=== PATIENT | female | born 1995 | race Caucasian/White ===

== ENCOUNTER 2017-11-20 13:00 | Inpatient (IN) | payer OTHER ==
[~2017-11-20] VITALS: Ht 167.6 cm; Wt 76.2 kg
[2017-11-24] MEDS ORDERED: PRENATAL TABLE1 EAC3 PO (14:00)
== END 2017-11-26 14:57 | DRG 775 ==
LOC: LDR 11-24 12:52 → OB/GYN 11-24 12:52 → LDR 12-07 13:00
PROC: 10E0XZZ Delivery of Products of Conception, External Approach (ICD-10-PCS; principal; 2017-11-24)
PROC: 0UQMXZZ Repair Vulva, External Approach (ICD-10-PCS; 2017-11-24)
PROC: 3E033VJ Introduction of Other Hormone into Peripheral Vein, Percutaneous Approach (ICD-10-PCS; 2017-11-24)
PROC: 4A1HXCZ Monitoring of Products of Conception, Cardiac Rate, External Approach (ICD-10-PCS; 2017-11-24)
DX: O71.82 Other specified trauma to perineum and vulva (principal); O99.824 Streptococcus B carrier state complicating childbirth; Z3A.38 38 weeks gestation of pregnancy; Z37.0 Single live birth

== ENCOUNTER 2022-02-24 12:10 | Inpatient (IN) | payer OTHER ==
[~2022-02-24] VITALS: Ht 167.6 cm; Wt 83.9 kg
[~2022-02-24 12:10] MED LIST: PRENATAL TABLE1 EAC3 PO
[2022-03-01] MEDS ORDERED: ACETAMINOPHEN325 M1 PO (07:06)
== END 2022-03-01 12:04 | disposition home or self-care (01) | DRG 798 ==
LOC: LDR 02-27 05:25 → OB/GYN 02-27 05:25
PROVIDERS: ADMIT Specialist; ATTEND Specialist
PROC: 10E0XZZ Delivery of Products of Conception, External Approach (ICD-10-PCS; principal; 2022-02-27)
PROC: 4A1HXCZ Monitoring of Products of Conception, Cardiac Rate, External Approach (ICD-10-PCS; 2022-02-27)
PROC: 0UB70ZZ Excision of Bilateral Fallopian Tubes, Open Approach (ICD-10-PCS; 2022-02-28)
DX: O80 Encounter for full-term uncomplicated delivery (principal); Z37.0 Single live birth; Z3A.38 38 weeks gestation of pregnancy; Z30.2 Encounter for sterilization; Z20.822 Contact with and (suspected) exposure to COVID-19